=== PATIENT | female | born 1980 | race Caucasian/White ===

== ENCOUNTER 2019-04-24 17:20 | Emergency (ER) | payer BC, SELFPAY ==
--- NOTE | ~2019-04-24 | XR_ITS ---
EXAMINATION: XR wrist LT 2V DATE: 04/24/2019 18:38 INDICATION: Left wrist pain and bump over the pain at the radial side of the proximal wrist TECHNIQUE: Posteroanterior and lateral views of the left wrist were obtained. COMPARISON: none FINDINGS: Alignment is normal. No fracture. Joint spaces are normal. Approximately 3 mm diameter soft tissue de nsity projecting over the subcutaneous fat dorsal to the distal radial metadiaphysis which could repr esent a soft tissue nodule or subcutaneous vessel viewed en face. IMPRESSION: 1. Approximately 3 mm diameter soft tissue density projecting over the subcutaneous fat dorsal to the distal radial metadiaphysis which could represent a nonspecific soft tissue nodule or subcutaneous v essel viewed en face. Reviewed, dictated and finalized at location A. CH MANAGER IMPRESSION: 1. Approximately 3 mm diameter soft tissue density projecting over the subcutan eous fat dorsal to the distal radial metadiaphysis which could represent a nons pecific soft tissue nodule or subcutaneous vessel viewed en face.
[2019-04-24 18:18] VITALS: BP 123/88; PULSE 74; RESP 19; TEMP 37.3; O2SAT 99
[2019-04-24 20:27] VITALS: BP 124/100; PULSE 80; RESP 12; TEMP 36.7; O2SAT 95
--- NOTE | 2019-04-24 20:55 | ED.EXTPRO ---
HPI - Extremity Problem General Chief complaint: Extremity Problem,Nontraumatic Stated complaint: wrist injury Time Seen by Provider: 04/24/19 20:50 Source: patient and RN notes reviewed Mode of arrival: ambulatory Limitations: no limitations History of Present Illness HPI Narrative: Pt is a 38 y/o female who presents to the ED with c/o lt forearm pain starting this morning. She notes that she is currently 2 weeks , and states that she has received a multitude of IV's in her lt arm within the past several weeks. Pt notes that she woke up this morning with a throbbing pain in her lt forearm. She states that her pain seems to radiate along a superficial vein up her lt arm. Pt notes that she has since developed a bump on her lt forearm. She states that she hasn't taken any pain medications for her symptoms today. MD Complaint: extremity pain Onset (ago): hour(s) (several) Location: left and upper extremity Radiation: proximal Associated symptoms: other (bump on lt forearm) Context: recent surgery/procedure (recent vaginal delivery) Related Data Home Medications Medication Instructions Recorded Confirmed PNV cmb#95-ferrous fumarate-FA 1 tablet PO DAILY 03/16/19 04/08/19 [] Allergies Allergy/AdvReac Type Severity Reaction Status Date / Time No Known Allergies Allergy Verified 04/24/19 20:30 Review of Systems Review of Systems: All systems reviewed & are unremarkable except as noted in HPI and below Musculoskeletal: Musculoskeletal: Reports other (lt forearm pain radiating up lt arm) Integumentary/Breasts: Skin/Breast: Reports other (bump on lt forearm) PMFSH Past Medical History Medical History Gestational diabetes mellitus (GDM) depression Surgical History Surgical History Hx of breast augmentation Social History Social History Smoking status: Never smoker Substance use: never Gender identity (if verbalized by the patient): Female Spiritual care concerns: No Course Vital Signs Vital signs: Vital Signs Temperature 37.3 C 04/24/19 18:18 Pulse Rate 74 04/24/19 18:18 Respiratory Rate 19 04/24/19 18:18 Blood Pressure 123/88 04/24/19 18:18 Pulse Oximetry 99 04/24/19 18:18 Temperature 36.7 C 04/24/19 20:27 Pulse Rate 88 04/24/19 21:35 Respiratory Rate 19 04/24/19 21:35 Blood Pressure 121/82 04/24/19 21:35 Pulse Oximetry 97 04/24/19 21:35 Procedures Other Procedure Procedure 1: Other Procedure: Bedside ultrasound left upper extremity US show non-compressible superficial vein in left forearm. approximately 3 cm segment. Remainder of superficial and deep veins fully compressible. MDM - Extremity (Nontraumatic) MDM Narrative Medical decision making narrative: US shows thrombosed superficial vein. I will start her on a daily aspirin. Differential Diagnosis Differential diagnosis: Likely deep venous thrombosis of upper extremity and other (Superficial thrombosis) Discharge Plan Discharge Clinical Impression: Acute thrombosis of superficial veins of arm Patient Disposition: Home, Self-Care Condition: Stable Instructions: Antibiotic Form, Deep Vein Thrombosis Prevention (ED) Prescriptions: New aspirin [Enteric Coated Aspirin] 81 mg tablet,delayed release (DR/EC) 81 mg PO DAILY Qty: 30 RF: 0 No Action PNV cmb#95-ferrous fumarate-FA [] 28 mg iron- 800 mcg Tablet 1 tablet PO DAILY RF: 0 ibuprofen 600 mg Tablet 600 mg PO Q6H PRN (Reason: Cramping) Qty: 60 RF: 0 Follow-up/Referrals: UNKNOWN,DOCTOR [Primary Care Provider] - Discharge Date/Time: 04/24/19 21:35
[2019-04-24 21:35] VITALS: BP 121/82; PULSE 88; RESP 19; O2SAT 97
== END 2019-04-24 21:35 | disposition home or self-care (01) ==
PROVIDERS: Emergency Provider Emergency Medicine
DX: O99.43 Diseases of the circulatory system complicating the puerperium (principal); T80.1XXA Vascular complications following infusion, transfusion and therapeutic injection, initial encounter; I82.612 Acute embolism and thrombosis of superficial veins of left upper extremity
CPT/HCPCS: 73100; 99283

== ENCOUNTER 2020-03-12 12:46 | Observation (INO) | payer BC, SELFPAY ==
[2020-03-12 13:13] VITALS: BP 108/72; PULSE 73
[2020-03-12 13:15] VITALS: BP 107/69; PULSE 72
[2020-03-12 13:20] VITALS: BMI 24.5
[2020-03-12] MEDS: TERBUTALINE SULFATE 1 MG/ML VIAL 0.25 MG SUB-Q ×2 (13:49→14:25)
[2020-03-12 15:06] LABS: Basophils Percent Auto 0.6 % (0.2-1.2); Eosinophils Absolute Auto 0.1 K/mm3 (0-0.3); Eosinophils Percent Auto 0.8 % (0-4.4); Hematocrit 32.2 % (37.0-47.0); Hemoglobin 10.8 g/dL (12.0-15.0); Immature Granulocyte Absolute 0.06 K/mm3 (0.00-0.031); Lymphocytes Absolute Auto 1.79 K/mm3 (0.9-3.2); Lymphocytes Percent Auto 28.4 % (18.3-44.2); Mean Corpuscular HGB Conc 33.5 g/dl (32-36); Mean Corpuscular Hemoglobin 30.7 pg (26-34); Mean Corpuscular Volume 91.5 fl (80-100); Mean Platelet Volume 9.2 fl (7.4-10.4); Monocytes Absolute Auto 0.4 K/mm3 (0.1-0.6); Monocytes Percent Auto 6.8 % (2.6-8.5); Neutrophils Absolute Auto 3.9 K/mm3 (1.3-6.7); Neutrophils Percent Auto 62.4 % (45.5-73.1); Platelet Count Result 182 k/mm3 (150-375); Red Blood Count 3.52 M/mm3 (4.2-5.4); Red Cell Distribution Width 13.6 % (11.5-14.5); White Blood Count 6.3 K/mm3 (4.5-10.0)
[2020-03-12 15:11] LABS: Add Urine Microscopic? YES; Amorphous Sediment Urine Few; Appearance Urine Cloudy (Clear); Bacteria Urine Trace /hpf; Bilirubin Urine Negative (Negative); Blood Urine Negative (Negative); Color Urine Yellow (Yellow); Glucose Urine UA Negative (Negative); Ketones Urine Negative (Negative); Leukocyte Esterase Ur Negative LEU/UL (NEGATIVE); Nitrate Urine Negative (Negative); Protein Urine Negative (Negative); RBC Urine 0-2 /hpf (0-2); Specific Grav Ur 1.016 (1.001-1.035); Squamous Epithelial Cell Urine Rare /hpf (Few); Urobilinogen Urine Negative mg/dL (<2.0); WBC Urine 0-3 /hpf (0-3)
[2020-03-12] MEDS: BETAMETHASONE SOD PHOS/ACETATE 30 MG/5 ML VIAL 12 MG IM (15:51)
--- NOTE | 2020-03-16 08:34 | P.PNOB_ITS ---
OB - Triage/Final Diagnosis Visit Information Date of evaluation: 03/13/20 Reason for evaluation: threatened labor Evaluation Laboratory results: Laboratory Tests 03/12/20 03/12/20 13:57 13:58 WBC 6.3 RBC 3.52 L Hgb 10.8 L Hct 32.2 L MCV 91.5 MCH 30.7 MCHC 33.5 RDW 13.6 Plt Count 182 MPV 9.2 Immature Gran % (Auto) 1.0 H Neut % (Auto) 62.4 Lymph % (Auto) 28.4 Angelina % (Auto) 6.8 Eos % (Auto) 0.8 Baso % (Auto) 0.6 Lymph # (Auto) 1.79 Angelina # (Auto) 0.4 Eos # (Auto) 0.1 Baso # (Auto) 0.0 Abs Immat Gran (auto) 0.06 H Absolute Neuts (auto) 3.9 Absolute Nucleated RBC 0.0 Nucleated RBC % 0.0 Urine Color Yellow Urine Appearance Cloudy H Urine pH 7.0 Ur Specific [place] 1.016 Urine Protein Negative Urine Glucose (UA) Negative Urine Ketones Negative Ur Blood (Man) Negative Urine Nitrate Negative Urine Bilirubin Negative Urine Urobilinogen Negative Ur Leukocyte Esterase Negative Urine RBC 0-2 Urine WBC 0-3 Ur Squamous Epith Cells Rare Amorphous Sediment Few H Urine Bacteria Trace
== END 2020-03-12 16:35 | disposition home or self-care (01) ==
PROVIDERS: Advanced Practice Midwife; Admitting Provider Obstetrics & Gynecology; Visit Provider Obstetrics & Gynecology
DX: O47.03 False labor before 37 completed weeks of gestation, third trimester (principal); Z3A.29 29 weeks gestation of pregnancy
CPT/HCPCS: 36415; 81001; 85025; 87086; 96372; G0378; G0379; J0702; J3105

== ENCOUNTER 2020-03-13 10:40 | Inpatient (IN) | payer BC, SELFPAY ==
[2020-03-13] VITALS (70 sets, daily range): BP systolic 90–112; BP diastolic 59–77; PULSE 54–97; RESP 12–18; TEMP 36.2–37.3; O2SAT 97–100; BMI 24.7
--- NOTE | ~2020-03-13 | US_ITS ---
EXAMINATION: US OB limited DATE: 03/13/2020 12:06 INDICATION: Contractions. Vaginal bleeding. Estimated gestational age of 29 weeks and 5 days. TECHNIQUE: Real-time ultrasound of the pelvis was performed. COMPARISON: Ultrasound 04/03/2019 FINDINGS: There is a single fetus in breech presentation. The placenta is anterior. heart rate is 131 be ats per minute (bpm). The amniotic fluid index is 13.7 cm, which is normal. The cervix is short with funneling on transabdominal images. IMPRESSION: 1. Single living fetus in breech presentation. 2. Short cervix with funneling on transabdominal images. Reviewed, dictated and finalized at location A. DINATING PRODUCER
--- NOTE | 2020-03-13 10:57 | OBADM ---
This patient, Zayra Larson, admitted to the OB room 116 at 1040 for observation for vaginal bleeding and contractions. Patient/family oriented to hospital policies and general routines including ID bracelet, bed and alarms, visiting hours, pain management, procedures, bathroom and other care routines, personal items, smoking policy, room service/diet, and visiting hours. Patient/Family are encouraged to report perceived risks to care and to ask questions if they do not understand what they are told or what they should do.
[2020-03-13] MEDS: ACETAMINOPHEN 500 MG TABLET 1000 MG PO (11:46)
[2020-03-13] MEDS: LACTATED RINGERS 1,000 ML 75 ML IV CONT (12:32)
[2020-03-13] MEDS: MAGNESIUM SULF 4 GM/WATER100ML 4 GM/100 ML BAG IVPB (12:33)
--- NOTE | 2020-03-13 12:45 | LDADM ---
This patient, Zayra Larson, was admitted to OB ROom 116 on 03/13/20 at 12:37. Plans for section/ and pain management were discussed with patient. Patient/family oriented to hospital policies and general routines including ID bracelet, bed and alarms, visiting hours, pain management, procedures, bathroom and other care routines, personal items, smoking policy, room service/diet and guest tray routines, infant security routines, and visiting hours. Patient/Family are encouraged to report perceived risks to care and to ask questions if they do not understand what they are told or what they should do. See OBIX for further documentation.
[2020-03-13] MEDS: ceFAZolin 2 GM/D5W 50 ML 2 GM/50 ML BAG IVPB (12:48)
[2020-03-13 12:57] LABS: Basophils Absolute Auto 0.1 K/mm3 (0.0-0.1); Basophils Percent Auto 0.5 % (0.2-1.2); Hematocrit 36.2 % (37.0-47.0); Hemoglobin 12.1 g/dL (12.0-15.0); Immature Granulocyte Absolute 0.18 K/mm3 (0.00-0.031); Immature Granulocyte Percent A 1.7 % (0-0.5); Lymphocytes Absolute Auto 1.48 K/mm3 (0.9-3.2); Lymphocytes Percent Auto 14.1 % (18.3-44.2); Mean Corpuscular HGB Conc 33.4 g/dl (32-36); Mean Corpuscular Hemoglobin 30.6 pg (26-34); Mean Corpuscular Volume 91.6 fl (80-100); Mean Platelet Volume 9.1 fl (7.4-10.4); Monocytes Absolute Auto 0.7 K/mm3 (0.1-0.6); Monocytes Percent Auto 6.5 % (2.6-8.5); Neutrophils Absolute Auto 8.1 K/mm3 (1.3-6.7); Neutrophils Percent Auto 77.2 % (45.5-73.1); Platelet Count Result 210 k/mm3 (150-375); Red Blood Count 3.95 M/mm3 (4.2-5.4); Red Cell Distribution Width 13.6 % (11.5-14.5); White Blood Count 10.5 K/mm3 (4.5-10.0)
--- NOTE | 2020-03-13 13:16 | WPDANESEPPF ---
Anes - Initial Pre Proc Eval Procedure: Operation Date: 03/13/20 12:45 Proposed Procedures p Section - Titi Soria MD Date/Time: 03/13/20 13:16 Surgeon: Titi Soria MD Pre Op Diagnosis: Bleeding/Contractions Patient Data Age: 39 Gender: F Height: 1.57 m Weight: 61.5 kg Last Vital Signs Temp 37.3 C 03/13/20 11:28 Pulse 81 03/13/20 11:30 BP 107/68 03/13/20 11:30 Allergies Allergy/AdvReac Type Severity Reaction Status Date / Time No Known Allergies Allergy Verified 04/24/19 20:30 Home Medications Medication Instructions Recorded Confirmed Type PNV cmb#95-ferrous fumarate-FA 1 tablet PO DAILY 03/16/19 03/13/20 History [] nifedipine [Procardia] 10 mg PO Q4-6H PRN 03/12/20 03/13/20 History fluoxetine 40 mg PO DAILY 03/13/20 03/13/20 History trazodone 50 mg PO HS 03/13/20 03/13/20 History Laboratory Tests 03/13/20 03/13/20 12:40 12:40 WBC 10.5 K/mm3 H K/mm3 (4.5-10.0) RBC 3.95 M/mm3 L M/mm3 (4.2-5.4) Hgb 12.1 g/dL g/dL (12.0-15.0) Hct 36.2 % L % (37.0-47.0) MCV 91.6 fl fl (80-100) MCH 30.6 pg pg (26-34) MCHC 33.4 g/dl g/dl (32-36) RDW 13.6 % % (11.5-14.5) Plt Count 210 k/mm3 k/mm3 (150-375) MPV 9.1 fl fl (7.4-10.4) Immature Gran % (Auto) 1.7 % H % (0-0.5) Neut % (Auto) 77.2 % H % (45.5-73.1) Lymph % (Auto) 14.1 % L % (18.3-44.2) [place] % (Auto) 6.5 % % (2.6-8.5) Eos % (Auto) 0.0 % % (0-4.4) Baso % (Auto) 0.5 % % (0.2-1.2) Lymph # (Auto) 1.48 K/mm3 K/mm3 (0.9-3.2) [place] # (Auto) 0.7 K/mm3 H K/mm3 (0.1-0.6) Eos # (Auto) 0.0 K/mm3 K/mm3 (0-0.3) Baso # (Auto) 0.1 K/mm3 K/mm3 (0.0-0.1) Abs Immat Gran (auto) 0.18 K/mm3 H K/mm3 (0.00-0.031) Absolute Neuts (auto) 8.1 K/mm3 H K/mm3 (1.3-6.7) Absolute Nucleated RBC 0.0 K/mm3 K/mm3 (0.0-0.012) Nucleated RBC % 0.0 % % (0.0-0.2) RPR Pending Patient hx anesthesia problems: none Family hx anesthesia problems: none [facility] Past Medical History Medical History (Updated 04/25/19 @ 00:00 by Mary Anne Serna) Gestational diabetes mellitus (GDM) depression Surgical History Surgical History Hx of breast augmentation Social History Social History Smoking status: Never smoker Substance use: never Gender identity (if verbalized by the patient): Female Spiritual care concerns: No Anes - Eval Final PreProcedure Day of Procedure 03/13/20 13:16 Patient weight: normal Heart: regular rate and rhythm Lungs: clear to auscultation and normal air movement Airway: Mallampati scale class 1 Neurological: alert and oriented Last oral intake: >/= 8 hours ASA classification: II Emergent: yes Anesthetic plan: proceed Anesthesia type and monitoring: regional spinal and standard monitoring Informed Consent: The patient's anesthetic plan and its attendant risks and benefits were discussed with the patient/family/POA. Questions were solicited and answers provided to the satisfaction of the patient/family/POA.
[2020-03-13] MEDS: KETOROLAC 30 MG/ML VIAL (*BKC) 15 MG IV PUSH (13:24)
[2020-03-13] MEDS: TRANEXAMIC ACID 1,000 MG/10 ML AMPUL 1000 MG IV PUSH (13:57)
--- NOTE | 2020-03-13 14:36 | PM.IMHP ---
H&P: HPI History of Present Illness Date/Time: 03/13/20 14:36 Chief Complaint: Labor Narrative: Zayra Larson is a 39 year old female, multiparous, she is at 39 weeks gestation with a completely dilated cervix, bulging membranes, and debris be in the breech presentation. She denies any nausea, vomiting, fever, chills. She denies any chest pain or shortness of breath. She has had pelvic pressure but not many discrete contractions. She was given steroid dose yesterday after some contractions that were treated with nifedipine. She was 1 cm yesterday. Review of Systems Constitutional: Constitutional: Reports no additional constitutional complaints, Denies fatigue, Denies headache(s), Denies lethargy and Denies weakness Eyes: Eyes: Reports no additional eye complaints, Denies blurry vision and Denies photophobia ENT: Reports as per HPI, Denies headache(s) and Denies neck pain Cardiovascular: Cardiovascular: Denies chest pain, Denies diaphoresis, Denies leg edema, Denies palpitations and Denies dyspnea Respiratory: Respiratory: Denies hemoptysis, Denies dyspnea and Denies wheezing Gastrointestinal: Gastrointestinal: Denies abdominal pain, Denies melena, Denies bloating, Denies hematochezia, Denies nausea and Denies vomiting Genitourinary: Genitourinary: Reports no additional female genitourinary complaints Musculoskeletal: Musculoskeletal: Denies joint swelling, Denies neck pain, Denies numbness and Denies stiffness Neurologic: Denies Abnormal speech present, Denies confusion, Denies headache(s), Denies numbness and Denies weakness Psychiatric: Psychiatric: Denies anxiety, Denies confusion, Denies depression, Denies homicidal ideation and Denies suicidal ideation Endocrine: Endocrine: Denies fatigue and Denies palpitations Allergic/Immunologic: Allergic/Immunologic: Denies wheezing PMFSH Past Medical History Medical History (Updated 03/13/20 @ 14:39 by Titi Soria MD) Gestational diabetes mellitus (GDM) depression Surgical History Surgical History Hx of breast augmentation Social History Social History Smoking status: Never smoker Substance use: never Gender identity (if verbalized by the patient): Female Spiritual care concerns: No Meds Home Medications and Allergies Home Medications Medication Instructions Recorded Confirmed Type PNV cmb#95-ferrous fumarate-FA 1 tablet PO DAILY 03/16/19 03/13/20 History [] nifedipine [Procardia] 10 mg PO Q4-6H PRN 03/12/20 03/13/20 History fluoxetine 40 mg PO DAILY 03/13/20 03/13/20 History trazodone 50 mg PO HS 03/13/20 03/13/20 History Allergies Allergy/AdvReac Type Severity Reaction Status Date / Time No Known Allergies Allergy Verified 04/24/19 20:30 Vital Signs Vital Signs - 24 hr 03/13/20 10:55 03/13/20 11:00 03/13/20 11:28 Temperature 99.2 F Pulse Rate 97 92 Blood Pressure 112/77 111/72 Pulse Oximetry 03/13/20 11:30 03/13/20 14:28 03/13/20 14:29 Temperature Pulse Rate 81 63 Blood Pressure 107/68 92/60 L Pulse Oximetry 97 03/13/20 14:30 03/13/20 14:33 03/13/20 14:35 Temperature Pulse Rate 62 62 Blood Pressure 92/59 L 93/62 L Pulse Oximetry 99 Exam Const: General: healthy appearing, comfortable and no acute distress; No confusion Orientation/consciousness: No confusion Eyes: Direct Ophthalmoscopy: No photophobia Resp: Auscultation: clear to auscultation bilaterally, no rales, no rhonchi and no wheezes Cardio: Rate: regular rate Heart sounds: no click, no murmurs and no rubs GI: Inspection: non-distended GI Palp: No abdominal tenderness Auscultation: normal bowel sounds : Other: Cervical exam-complete, station unknown, bulging membranes Neuro: General: No confusion Speech: No Abnormal speech present Extrem: General: normal to inspection, no pedal edema and
--- NOTE | 2020-03-13 14:41 | PM.PROC ---
Procedure Note - Detailed Date of procedure: 03/13/20 Pre-op diagnosis: labor, breech presentation, 29 week gestat Post-op diagnosis: same Procedure performed: low-transverse delivery Description of procedure: The patient was taken the operating room. She was prepped and draped in the dorsal supine position with leftward tilt after induction of spinal anesthetic. When anesthesia was found to be adequate a low-transverse skin incision was made and carried down to the level the fascia with the knife. The fascial incision was made at the midline with a scalpel. The fascial incision was extended laterally with Rosa scissors. The fascia was tented upward superior and inferior with Char clamps. The rectus muscles were dissected off bluntly. The rectus muscles at the midline. The preperitoneal fat was dissected bluntly at the superior aspect of the separate the rectus muscles. The peritoneal cavity was entered bluntly in the same area. The peritoneal incision was extended superior and inferior with good visualization of bladder. Bladder blade was inserted. A low-transverse incision was made on the uterus with the scalpel. It was carried down the level of the amniotic cavity with a knife. The amniotic cavity bluntly. The uterine incision was made laterally with blunt traction. The uterine incision had to be extended vertically to deliver the infant. The infant was delivered. The cord was clamped and cut. The was handed off to waiting pediatric staff. Cord bloods were obtained. The placenta was removed manually. The uterus was exteriorized. Uterus cleared of all clots and debris. The endometrial and myometrial layer of the uterus was closed with an 0 Vicryl in a running fashion. An imbricating layer of 0 Vicryl was also placed on the to bolster the closure. The closure was done in a vertical fashion. Multiple [id number] sutures needed to be placed to make the uterus hemostatic. The sutures continue to ooze. The ovarian arteries on each side were ligated by making a window in the broad ligament and gently cinching down the suture around the ovarian artery. A window was created in the lower part of the broad ligament near the uterine arteries. Uterine arteries were then ligated using a 0 Vicryl that was placed through the cervix and around the arteries through the window created the broad ligament. This was gently cinched down. Premature was placed on the bleeding areas. Patient was given tranexamic acid. 1 g. IV. Large 1. Vicryl sutures were placed in a horizontal fashion. These were imbricating sutures/mattress style sutures. The uterus was replaced back in the. More hematoma was placed on the bleeding sites. The uterus was eventually hemostatic. The gutters were cleared of all clots and debris. The fascia was closed 0 Vicryl in a running fashion. Subcutaneous tissue was irrigated and bleeding areas were cauterized. The skin was closed with subcuticular absorbable piter. The incision was covered with derma brown. The patient tolerated the procedure well. She was taken recovery room stable condition. Sponge, lap, needle counts were correct x2. Anesthesia: spinal Surgeon: Titi Soria MD Drains: No Packing: No Pathology: none sent Complications: No immediate complications Condition: stable Disposition: floor Findings: Normal maternal anatomy, 29 week gestation with typical behavior for .
[2020-03-13] MEDS: OXYTOCIN 30 UNITS/NS 500 ML 30 UNITS/500 ML BAG 125 UNITS IV CONT (16:00)
--- NOTE | 2020-03-13 16:14 | PM.OBTRLD ---
OB - Triage/Final Diagnosis Visit Information Date of evaluation: 03/13/20 Reason for evaluation: threatened labor Evaluation Laboratory results: Laboratory Tests 03/13/20 03/13/20 12:40 12:40 WBC 10.5 H RBC 3.95 L Hgb 12.1 Hct 36.2 L MCV 91.6 MCH 30.6 MCHC 33.4 RDW 13.6 Plt Count 210 MPV 9.1 Immature Gran % (Auto) 1.7 H Neut % (Auto) 77.2 H Lymph % (Auto) 14.1 L [place] % (Auto) 6.5 Eos % (Auto) 0.0 Baso % (Auto) 0.5 Lymph # (Auto) 1.48 [place] # (Auto) 0.7 H Eos # (Auto) 0.0 Baso # (Auto) 0.1 Abs Immat Gran (auto) 0.18 H Absolute Neuts (auto) 8.1 H Absolute Nucleated RBC 0.0 Nucleated RBC % 0.0 Blood Type O Positive Antibody Screen Negative Vital signs: Vital Signs - 24 hr 03/13/20 10:55 03/13/20 11:00 03/13/20 11:28 Temperature 37.3 C Pulse Rate 97 92 Respiratory Rate Blood Pressure 112/77 111/72 Pulse Oximetry 03/13/20 11:30 03/13/20 14:27 03/13/20 14:28 Temperature 36.2 C L Pulse Rate 81 63 Respiratory Rate 12 Blood Pressure 107/68 92/60 L Pulse Oximetry 97 97 03/13/20 14:29 03/13/20 14:30 03/13/20 14:33 Temperature Pulse Rate 63 62 Respiratory Rate Blood Pressure 92/60 L 92/59 L Pulse Oximetry 99 03/13/20 14:35 03/13/20 14:38 03/13/20 14:40 Temperature Pulse Rate 62 64 Respiratory Rate 12 Blood Pressure 93/62 L 96/64 L Pulse Oximetry 98 03/13/20 14:43 03/13/20 14:45 03/13/20 14:48 Temperature Pulse Rate 60 Respiratory Rate Blood Pressure 100/64 Pulse Oximetry 99 99 03/13/20 14:50 03/13/20 14:53 03/13/20 14:55 Temperature Pulse Rate 58 L 60 Respiratory Rate 12 Blood Pressure 97/62 L 97/67 L Pulse Oximetry 99 03/13/20 14:58 03/13/20 15:00 03/13/20 15:03 Temperature Pulse Rate 58 L Respiratory Rate 12 Blood Pressure 98/66 L Pulse Oximetry 99 99 03/13/20 15:05 03/13/20 15:08 03/13/20 15:10 Temperature Pulse Rate 58 L 66 Respiratory Rate Blood Pressure 94/66 L 97/63 L Pulse Oximetry 98 03/13/20 15:13 03/13/20 15:15 03/13/20 15:18 Temperature Pulse Rate 55 L Respiratory Rate 14 Blood Pressure 98/66 L Pulse Oximetry 99 98 03/13/20 15:20 03/13/20 15:23 03/13/20 15:25 Temperature Pulse Rate 60 57 L Respiratory Rate Blood Pressure 95/66 L 98/67 L Pulse Oximetry 100 03/13/20 15:27 03/13/20 15:30 03/13/20 15:32 Temperature Pulse Rate 67 Respiratory Rate 12 Blood Pressure 91/68 L Pulse Oximetry 97 99 03/13/20 15:35 03/13/20 15:37 03/13/20 15:39 Temperature Pulse Rate 65 Respiratory Rate Blood Pressure 90/72 L Pulse Oximetry 100 100 03/13/20 15:40 03/13/20 15:44 03/13/20 15:45 Temperature Pulse Rate 55 L 54 L Respiratory Rate 12 Blood Pressure 102/67 98/71 L Pulse Oximetry 100 03/13/20 15:49 03/13/20 15:50 03/13/20 15:54 Temperature Pulse Rate 56 L Respiratory Rate Blood Pressure 98/68 L Pulse Oximetry 99 100 03/13/20 15:55 03/13/20 15:59 03/13/20 16:00 Temperature Pulse Rate 55 L 60 Respiratory Rate 16 Blood Pressure 96/68 L 102/67 Pulse Oximetry 99 03/13/20 16:04 03/13/20 16:05 03/13/20 16:09 Temperature Pulse Rate 56 L Respiratory Rate Blood Pressure 101/69 Pulse Oximetry 99 99 03/13/20 16:10 Temperature Pulse Rate 57 L Respiratory Rate Blood Pressure 97/67 L Pulse Oximetry
--- NOTE | 2020-03-13 18:57 | PC.NURSE ---
1702-Patient transferred to post room #281 via stretcher. Oriented to unit, room, information board, rooming in, admission packet and security measures. Patient verbalizes understanding.
[2020-03-13] MEDS: KETOROLAC 30 MG/ML VIAL (*BKC) IV PUSH (19:57)
[2020-03-14] VITALS (13 sets, daily range): BP systolic 89–99; BP diastolic 50–71; PULSE 57–70; RESP 12–20; TEMP 36.3–36.8; O2SAT 95–100
[2020-03-14] MEDS: KETOROLAC 30 MG/ML VIAL (*BKC) IV PUSH ×3 (01:39→18:52)
[2020-03-14] MEDS: HYDROcodone/acetaminophen (*CRX) 5-325 MG TABLET 1 TAB PO ×2 (04:46→16:15)
[2020-03-14 05:06] LABS: Basophils Percent Auto 0.3 % (0.2-1.2); Eosinophils Absolute Auto 0.1 K/mm3 (0-0.3); Eosinophils Percent Auto 1.3 % (0-4.4); Hematocrit 22.3 % (37.0-47.0); Hemoglobin 7.3 g/dL (12.0-15.0); Immature Granulocyte Absolute 0.05 K/mm3 (0.00-0.031); Immature Granulocyte Percent A 0.8 % (0-0.5); Lymphocytes Absolute Auto 1.47 K/mm3 (0.9-3.2); Lymphocytes Percent Auto 24.4 % (18.3-44.2); Mean Corpuscular HGB Conc 32.7 g/dl (32-36); Mean Corpuscular Hemoglobin 30.2 pg (26-34); Mean Corpuscular Volume 92.1 fl (80-100); Mean Platelet Volume 9.4 fl (7.4-10.4); Monocytes Absolute Auto 0.3 K/mm3 (0.1-0.6); Monocytes Percent Auto 5.6 % (2.6-8.5); Neutrophils Absolute Auto 4.1 K/mm3 (1.3-6.7); Neutrophils Percent Auto 67.6 % (45.5-73.1); Platelet Count Result 124 k/mm3 (150-375); Red Blood Count 2.42 M/mm3 (4.2-5.4); Red Cell Distribution Width 13.7 % (11.5-14.5)
[2020-03-14] MEDS: SIMETHICONE 80 MG TAB.CHEW PO ×2 (08:36→16:15)
[2020-03-14] MEDS: DOCUSATE SODIUM 100 MG CAPSULE PO ×2 (08:36→16:15)
[2020-03-14] MEDS: HYDROcodone/acetaminophen (*CRX) 10-325 MG TABLET 1 TAB PO ×2 (08:37→18:51)
[2020-03-14] MEDS: POLYSACCHARIDE IRON COMPLEX 150 MG CAPSULE PO ×2 (08:41→16:15)
[2020-03-14] MEDS: FLUoxetine HCL 20 MG CAPSULE 40 MG PO (08:42)
--- NOTE | 2020-03-14 10:20 | WPDANLDPN2 ---
Anes-Prog Note L&D Date/Time: 03/14/20 10:20 Comfortable throughout: section Neuraxial method: spinal Epidural/Spinal procedure site: clean & non-tender Neuro status: Neuro function grossly intact. Cardiovascular status: normal Respiratory status: normal Airway patency: baseline Mental status: baseline Post-Op hydration status: normal Vital Signs: Last Vital Signs Temp 36.8 C 03/14/20 04:30 Pulse 57 L 03/14/20 04:30 Resp 16 03/14/20 04:30 BP 89/59 L 03/14/20 04:30 Pulse Ox 95 03/14/20 04:30 Pain score (VAS): 3/10 I/O: Intake & Output 03/13/20 03/14/20 03/14/20 23:59 07:59 15:59 Intake Total 1400 Output Total 73 1600 Balance -73 -200 Post-procedural complaints: pruritis moderate, treatment effective Patient feedback: Patient satisfied with anesthetic care.
--- NOTE | 2020-03-14 10:20 | WPDANLDNPN2 ---
Anes-Prog Note L&D-Neuraxial Date/Time: 03/14/20 10:20 Neuraxial medications: intrathecal PF morphine Opiod-related complaints: none Patient feedback: Patient satisfied with post-operative pain management.
--- NOTE | 2020-03-14 11:42 | P.PNOB_ITS ---
OB - PN: Subj Subjective Date/time seen: 03/14/20 11:42 OB - PN: Obj Data Labs CBC & Chem 7: 03/14/20 04:28 Labs: Laboratory Results - last 24 hr 03/13/20 03/13/20 03/14/20 12:40 12:40 04:28 WBC 10.5 H 6.0 RBC 3.95 L 2.42 L Hgb 12.1 7.3 L D Hct 36.2 L 22.3 L MCV 91.6 92.1 MCH 30.6 30.2 MCHC 33.4 32.7 RDW 13.6 13.7 Plt Count 210 124 L MPV 9.1 9.4 Immature Gran % (Auto) 1.7 H 0.8 H Neut % (Auto) 77.2 H 67.6 Lymph % (Auto) 14.1 L 24.4 [place] % (Auto) 6.5 5.6 Eos % (Auto) 0.0 1.3 Baso % (Auto) 0.5 0.3 Lymph # (Auto) 1.48 1.47 [place] # (Auto) 0.7 H 0.3 Eos # (Auto) 0.0 0.1 Baso # (Auto) 0.1 0.0 Abs Immat Gran (auto) 0.18 H 0.05 H Absolute Neuts (auto) 8.1 H 4.1 Absolute Nucleated RBC 0.0 0.0 Nucleated RBC % 0.0 0.0 Blood Type O Positive Antibody Screen Negative Imaging Radiologist's impression: Impressions Obstetrics Ultrasound 03/13/20 12:15 IMPRESSION: 1. Single living fetus in breech presentation. 2. Short cervix with funneling on transabdominal images. OB - PN A/P Assessment and Plan (1) Hematoma of surgical wound following section: Code(s): O90.2 - Hematoma of obstetric wound Status: Acute Assessment and Plan: Skin is due to the hematoma, the skin is under some tension from the abdominal plasty. We will need to reoperate on the patient to irrigate the subcutaneous tissue properly, remove the clot, and reapproximate the scan. The patient understands. She understands the risks, benefits, and alternatives. Bethany morrison completed the informed consent process and is ready to proceed. Time Spent With Patient Time: Total time spent is greater than 50% in coordination of care (as documented) at patient's floor/unit and/or counseling patient: Exam Const: General: comfortable, no acute distress and alert Resp: Effort & Inspection: normal respiratory effort Auscultation: no crackles, no rales and no rhonchi Cardio: Rate: regular rate Heart sounds: no click, no murmurs and no rubs GI: Inspection: non-distended GI Palp: No Tenderness to palpation present (GI) Auscultation: normal bowel sounds Other: Incision -incisions under significant tension. Under the fluid there appeared to be blood. The balloon was removed. There was a large hematoma underneath the skin. Most of the scan was no longer approximated but was held in place with the glue. The central 2/3 of the incision were with blood cot underneath.. Extrem: General: normal to inspection, no pedal edema and no calf tenderness
--- NOTE | 2020-03-14 12:16 | WPDHPUPDATE1 ---
History and Physical Update Update Date/Time: 03/14/20 12:16 To perform closure of surgical incision. History and Physical has been reviewed, including an updated exam of the patient. There are NO changes in the patient's condition. Risks, benefits, and alternatives have been discussed and questions answered. Patient agrees to proceed with procedure.
--- NOTE | 2020-03-14 12:20 | WPDANESEPP ---
Anes - Eval Pre Procedure Procedure: c section incision revision vs I&D Operation Date: 03/13/20 12:45 Proposed Procedures p Section - Titi Soria MD Operation Date: 03/14/20 13:00 Proposed Procedures p Abdominal Hysterectomy BSO Exp Lap Crap Game Box Person Exploratory Laparotomy DATA ARCHITECT - Titi Soria MD Date/Time: 03/14/20 12:20 Surgeon: Yang Preop Diagnosis: hematoma incision s/p c section Pre Op Diagnosis: labor, breech presentation, 29 week gestat Patient Data Age: 39 Gender: F Height: 5 ft 2 in Weight: 61.5 kg Last Vital Signs Temp 36.7 C 03/14/20 11:32 Pulse 61 03/14/20 11:32 Resp 16 03/14/20 11:32 BP 98/64 L 03/14/20 11:32 Pulse Ox 100 03/14/20 11:32 Allergies Allergy/AdvReac Type Severity Reaction Status Date / Time No Known Allergies Allergy Verified 04/24/19 20:30 Home Medications Medication Instructions Recorded Confirmed Type PNV cmb#95-ferrous fumarate-FA 1 tablet PO DAILY 03/16/19 03/13/20 History [] nifedipine [Procardia] 10 mg PO Q4-6H PRN 03/12/20 03/13/20 History fluoxetine 40 mg PO DAILY 03/13/20 03/13/20 History trazodone 50 mg PO HS 03/13/20 03/13/20 History Laboratory Tests 03/13/20 03/13/20 03/13/20 12:40 12:40 12:40 WBC 10.5 K/mm3 H K/mm3 (4.5-10.0) RBC 3.95 M/mm3 L M/mm3 (4.2-5.4) Hgb 12.1 g/dL g/dL (12.0-15.0) Hct 36.2 % L % (37.0-47.0) MCV 91.6 fl fl (80-100) MCH 30.6 pg pg (26-34) MCHC 33.4 g/dl g/dl (32-36) RDW 13.6 % % (11.5-14.5) Plt Count 210 k/mm3 k/mm3 (150-375) MPV 9.1 fl fl (7.4-10.4) Immature Gran % (Auto) 1.7 % H % (0-0.5) Neut % (Auto) 77.2 % H % (45.5-73.1) Lymph % (Auto) 14.1 % L % (18.3-44.2) [place] % (Auto) 6.5 % % (2.6-8.5) Eos % (Auto) 0.0 % % (0-4.4) Baso % (Auto) 0.5 % % (0.2-1.2) Lymph # (Auto) 1.48 K/mm3 K/mm3 (0.9-3.2) [place] # (Auto) 0.7 K/mm3 H K/mm3 (0.1-0.6) Eos # (Auto) 0.0 K/mm3 K/mm3 (0-0.3) Baso # (Auto) 0.1 K/mm3 K/mm3 (0.0-0.1) Abs Immat Gran (auto) 0.18 K/mm3 H K/mm3 (0.00-0.031) Absolute Neuts (auto) 8.1 K/mm3 H K/mm3 (1.3-6.7) Absolute Nucleated RBC 0.0 K/mm3 K/mm3 (0.0-0.012) Nucleated RBC % 0.0 % % (0.0-0.2) RPR Pending Blood Type O Positive Antibody Screen Negative 03/14/20 04:28 WBC 6.0 K/mm3 K/mm3 (4.5-10.0) RBC 2.42 M/mm3 L M/mm3 (4.2-5.4) Hgb 7.3 g/dL L D g/dL (12.0-15.0) Hct 22.3 % L % (37.0-47.0) MCV 92.1 fl fl (80-100) MCH 30.2 pg pg (26-34) MCHC 32.7 g/dl g/dl (32-36) RDW 13.7 % % (11.5-14.5) Plt Count 124 k/mm3 L k/mm3 (150-375) MPV 9.4 fl fl (7.4-10.4) Immature Gran % (Auto) 0.8 % H % (0-0.5) Neut % (Auto) 67.6 % % (45.5-73.1) Lymph % (Auto) 24.4 % % (18.3-44.2) [place] % (Auto) 5.6 % % (2.6-8.5) Eos % (Auto) 1.3 % % (0-4.4) Baso % (Auto) 0.3 % % (0.2-1.2) Lymph # (Auto) 1.47 K/mm3 K/mm3 (0.9-3.2) [place] # (Auto) 0.3 K/mm3 K/mm3 (0.1-0.6) Eos # (Auto) 0.1 K/mm3 K/mm3 (0-0.3) Baso # (Auto) 0.0 K/mm3 K/mm3 (0.0-0.1) Abs Immat Gran (auto) 0.05 K/mm3 H K/mm3 (0.00-0.031) Absolute Neuts (auto) 4.1 K/mm3 K/mm3 (1.3-6.7) Absolute Nucleated RBC 0.0 K/mm3 K/mm3 (0.0-0.012) Nucleated RBC % 0.0 % % (0.0-0.2) RPR Blood Type Antibody Screen Patient hx anesthesia problems: none Family hx anesthesia problems: none [facility] Past Medical History Medical History Gestational diabetes mellitus (GDM) depression Surgical History Surgical History Hx of breast augmentation Family History Family H
[2020-03-14] MEDS: ceFAZolin 2 GM/D5W 50 ML 2 GM/50 ML BAG IVPB (12:45)
[2020-03-14 12:54] LABS: Rapid Plasma Reagin Non-Reactive (NonReactive)
--- NOTE | 2020-03-14 13:37 | SUR.OPER ---
EARING LEFT EAR SMALL MRAIELOS REMAINS INTACT. PATIENT DENIED ANY METAL PRE OP.
[2020-03-14] MEDS: LACTATED RINGERS 1,000 ML 30 ML IV CONT (13:43)
--- NOTE | 2020-03-14 13:47 | PC.NURSE ---
11:25- Dr. Soria on floor to round on pt.'s. Status report given including pt. having bloody drainage from abdominal incision. Dr. Soria observed incision. See MD. notes. Order received to have pt. sign consent for Surgical Closure of Abdominal Wound. Pt. comfortable at this time. Very pleasant and cooperative. at side. 12:30- Pt. to O.R. per clark.
--- NOTE | 2020-03-14 14:07 | P.OP_ITS ---
Procedure Note - Detailed Date of procedure: 03/14/20 Pre-op diagnosis: labor, breech presentation, 29 week gestat Procedure performed: Exploratory laparotomy Description of procedure: The patient states the operating room. She was prepped and draped in the dorsal spine position after spinal anesthetic. The open incision was cleaned with Betadine. Justino that were visualized were removed. The fascial stitch was transected. The fascia was opened. The uterus was examined. There were some small areas oozing blood. These areas were cauterized. They were along the anterior surface of the uterus. There were 3. Hematoma was placed over the uterine surface that had previously been operated on. Multiple sutures to still be visualized. There was no marked hemorrhage or reggie bleeding. Any free clot or liquid blood in the pelvis was removed. There was a small amount. The fascia was closed with an 0 Vicryl running fashion. There was subcutaneous interrupted sutures of 3 0 PDS were used to augment the closure. A 2O strata fix was used to close the skin. Prior to closure the skin and subcutaneous fat was irrigated. Pinpoint bleeders were cauterized. The closed skin was covered with glue. A Mepilex dressing and pressure dressing we re applied. Anesthesia: spinal Surgeon: Titi Soria MD Estimated blood loss (mL): 30 Drains: No Packing: No Complications: No immediate complications Condition: stable Disposition: floor Findings: Small amount of blood and clot within the pelvis/abdominal cavity. Moderate-sized clot in the subcutaneous fat. There were areas of oozing in the subcutaneous fat. There was a couple of areas of oozing on the anterior uterine surface inside the abdominal cavity.
--- NOTE | 2020-03-14 14:24 | SUR.PHASEI ---
PT AWAKE AND RESTING QUIETLY. HAS SENSATION DOWN TO BILAT KNEES NOW. NO MOVEMENT YET. PT DENIES PAIN OR NAUSEA. RESP EVEN UNLABORED. P,W,D. HOB AT 15 DEGREES.
--- NOTE | 2020-03-14 14:34 | SUR.PHASEI ---
PT AWAKE AND ALERT. DENIES PAIN OR NAUSEA. STATES SHE IS READY TO GO HOME AND SMILED. REPORT GIVEN TO FLOOR RN. PT MEETS DISCHARGE CRITERIA FOR PACU.
--- NOTE | 2020-03-14 14:48 | PC.NURSE ---
This patient, Zayra Larson, was received from PACU on 03/14/20 at 1448. Patient alert and oriented. Call light in reach. at side.
[2020-03-14 19:00] LABS: Hematocrit 21.7 % (37.0-47.0)
[2020-03-14 19:10] LABS: INR 1.1; Prothrombin Time 14.7 Seconds (11.1-14.7)
[2020-03-14 19:11] LABS: Partial Thromboplastin Time 30.7 SECONDS (22.3-36.8)
[2020-03-16 08:03] VITALS: BP 123/81; PULSE 58; RESP 20; TEMP 37.1; O2SAT 100
[2020-03-17 14:23] LABS: von Willebrand Factor Ag 104 % (50-217)
--- NOTE | 2020-04-09 20:42 | PM.OBDSVD ---
DS: Admitting Diagnosis Admitting Diagnosis Admitting Diagnosis: labor, breech OB - DS: Summary OB Procedures : PTL Mgmt OB Procedures Intrapartum: OB Procedures: : None Peripartum Data Delivery Method: Section Procedures: Procedures Operation Date: 03/13/20 12:45 Actual Procedures Side Surgeon p Section and Bilateral Tubal Ligation Bilateral Titi Soria MD Operation Date: 03/14/20 13:00 Actual Procedures Side Surgeon p Closure of Abdominal Surgical Wound Titi Soria MD complications: none Time Spent with Patient Time attestation: Total time spent providing and/or coordinating discharge services: DS: Data Data Completed and Pending Completed studies during hospitalization: Pending at discharge 03/13/20 13:42 Surgical [PTH] Routine Discharge Plan Discharge Attending physician on discharge: Titi Soria Consulting providers: Kenia Hill ; Beka Gregory ; Issa Richter V. Discharging Clinician: Titi Soria Patient Disposition: Home, Self-Care Activity: may shower, no straining, no driving, as tolerated and pelvic rest Diet: regular Discharge Instructions: Education: Mom and Baby Guide Given to: Mother Follow-Up: Call your delivering provider's office for an appointment to be seen in: 1 Week Mom and baby should come to the [facility] for the follow-up appointment. Appointment Date/Time: March 16, 2020 at 8:00 am What to expect at your follow-up visit: Blood Pressure Check Physical Assessment Call [phone] if you are unable to keep your appointment time. BREAST CARE: * Wear a snug supportive bra. * For engorgement discomfort: Breast Feeding: * Apply warm moist washcloths * Express milk as needed to relieve engorgement * Wear loose clothing Bottle Feeding: * May apply ice packs * For sore nipples: * Identify correct latch-on * Apply warm moist washcloths before and after nursing * Air dry nipples after nursing * May apply Lansinoh cream to nipples ABDOMINAL INCISION: (if applicable) * Allow incision to air dry * Do NOT use lotions for powders on your incision * When showering, allow soap and water to run over the incision, but do not wash incision EPISIOTOMY/PERINEAL CARE: * Until bleeding stops, use your diego bottle after urinating * Change your pad frequently throughout the day * You may take sitz baths several times a day (fill your bathtub with warm water and soak for 20 minutes.) Do NOT bathe in the water * No tub baths until seen by your physician - You may shower ACTIVITY: * Rest as much as possible. * Do not exercise or lift anything heavier than your baby (such as laundry or other children.) * Avoid stairs or driving as much as possible. * Do not put anything into the vagina. No douching, tampons, or sexual activity until seen by physician. NOTIFY PHYSICIAN IF YOU HAVE ANY QUESTIONS OR IF ANY OF THE FOLLOWING SYMPTOMS OCCUR: * If your episiotomy or incision becomes red, swollen, or more painful than what you have experienced in the hospital. * If your vaginal bleeding becomes foul smelling. * If your vaginal bleeding becomes more heavy than a period or if your bleeding changes from pink to bright red. However, you may pass an occasional walnut-sized clot once or twice for the first week . * If you experience a sharp, shooting pain in you calves. * If you discover a hard, reddened area on your breast or if you experience flu-like symptoms. DIET: * Eat regular, well-balanced meals. * Drink plenty of fluids daily. If , drink to thirst. Patient Instructions: Antibiotic Form Stand Alone Forms: General Discharge Information Follow-up/Referrals: Titi Soria MD [Physician] - Discharge Medications: New ac
== END 2020-03-14 20:05 | disposition home or self-care (01) | DRG 787 ==
LOC: ANHOBPP 12:37 → ANHLDR 12:38 → ANHOB2 17:09
PROVIDERS: Admitting Provider Obstetrics & Gynecology; Visit Provider Obstetrics & Gynecology
PROC: 10D00Z1 Extraction of Products of Conception, Low, Open Approach (ICD-10-PCS; CPT 59514; principal; 2020-03-13 12:45)
PROC: 0UT94ZZ Resection of Uterus, Percutaneous Endoscopic Approach (ICD-10-PCS; principal; 2020-03-14 13:00)
DX: O60.14X0 Preterm labor third trimester with preterm delivery third trimester, not applicable or unspecified (principal); O72.1 Other immediate postpartum hemorrhage; O32.1XX0 Maternal care for breech presentation, not applicable or unspecified; O90.2 Hematoma of obstetric wound; Z3A.29 29 weeks gestation of pregnancy; Z37.0 Single live birth; O99.72 Diseases of the skin and subcutaneous tissue complicating childbirth; L29.9 Pruritus, unspecified
CPT/HCPCS: 36415; 76815; 83520; 85014; 85018; 85025; 85246; 85610; 85730; 86592; 86850; 86900; 86901; 88302; 88307; A9270; G0378; J0131; J0290; J0690; J1885; J2250; J2274; J2405; J2590; J2704; J3010; J3475; J7120

== ENCOUNTER 2020-08-26 12:17 | Outpatient (CLI) | payer BC, SELFPAY ==
--- NOTE | ~2020-08-26 | MM_ITS ---
EXAMINATION: MM scrn rosanna implant BI w rose HISTORY: Screening mammogram TECHNIQUE: Craniocaudal and mediolateral oblique 3-D tomosynthesis images with implant displacement a nd synthetic 2-D images were generated. Craniocaudal and mediolateral oblique views of the breasts wi thout implant displacement were obtained using full field digital mammography. CAD analysis was submi tted and interpreted. COMPARISON: No prior mammogram is available for comparison at this institution. BREAST PARENCHYMAL COMPOSITION: The breasts are heterogeneously dense, which may obscure small masses . FINDINGS: Status post bilateral augmentation mammoplasty. There is no evidence of suspicious mass, ca lcification, or architectural distortion to suggest malignancy in either breast. IMPRESSION: 1. No mammographic evidence of malignancy. 2. Recommend routine screening mammography in one year. BI-RADS Category 1: Negative Reviewed, dictated and finalized at location A.
== END 2020-08-26 12:18 | disposition home or self-care (01) ==
PROVIDERS: Visit Provider Surgery Plastic and Reconstructive Surgery
DX: Z12.31 Encounter for screening mammogram for malignant neoplasm of breast (principal)
CPT/HCPCS: 77063; 77067

== ENCOUNTER → 2020-10-28 03:34 | Outpatient (CLI) | payer OTHER, SELFPAY ==
[2020-10-28 17:32] LABS: SARS-CoV-2 RNA PCR Negative
== END ==
PROVIDERS: Visit Provider Surgery Plastic and Reconstructive Surgery
DX: Z01.812 Encounter for preprocedural laboratory examination (principal); Z20.822 Contact with and (suspected) exposure to COVID-19
CPT/HCPCS: C9803; U0003; U0005

== ENCOUNTER 2020-10-31 01:16 | Day surgery (SDC) | payer OTHER, SELFPAY ==
[2020-10-28 13:26] VITALS: BMI 22.1
[2020-10-31] VITALS (9 sets, daily range): BP systolic 101–135; BP diastolic 65–88; PULSE 62–100; RESP 10–16; TEMP 36.3–36.9; O2SAT 92–100; BMI 22.1
[2020-10-31] MEDS: LACTATED RINGERS 1,000 ML 30 ML IV CONT (06:53)
--- NOTE | 2020-10-31 06:53 | SUR.PREOP ---
500CC IVF BOLUS INFUSING, PER ORDER
--- NOTE | 2020-10-31 06:55 | WPDHPUPDATE1 ---
History and Physical Update Update Date/Time: 10/31/20 06:55 History and Physical has been reviewed, including an updated exam of the patient. There are NO changes in the patient's condition. Risks, benefits, and alternatives have been discussed and questions answered. Patient agrees to proceed with procedure.
--- NOTE | 2020-10-31 06:55 | WPDANESEPPF ---
Anes - Initial Pre Proc Eval Procedure: Operation Date: 10/31/20 07:30 Proposed Procedures p Removal Bilateral Breast Implants, - Sea Orozco MD s Bilateral Breast Mastopexy - Sea Orozco MD Date/Time: 10/31/20 06:55 Surgeon: Sea Orozco MD Pre Op Diagnosis: breast ptosis, unacceptable cosmetic appearance Patient Data Age: 39 Gender: F Height: 1.57 m Weight: 55 kg Allergies Allergy/AdvReac Type Severity Reaction Status Date / Time No Known Allergies Allergy Verified 10/31/20 06:17 Home Medications Medication Instructions Recorded Confirmed Type fluoxetine 40 mg PO DAILY 03/13/20 10/31/20 History trazodone 50 mg PO HS 03/13/20 10/31/20 History docusate sodium 100 mg capsule 100 mg PO DAILY #14 cap 10/16/20 Rx hydrocodone 5 mg-acetaminophen 325 1 tablet PO Q6H PRN #15 tablet 10/16/20 10/16/20 Rx mg tablet ondansetron HCl 4 mg tablet 4 mg PO Q8H #21 tablet 10/16/20 Rx Laboratory Tests 10/31/20 06:39 Cotinine Pending Patient hx anesthesia problems: none Family hx anesthesia problems: none PMFSH Past Medical History Medical History Gestational diabetes mellitus (GDM) depression Surgical History Surgical History History of Hx of breast augmentation Family History Family History Other No pertinent family history Social History Social History Smoking status: Never smoker Second hand tobacco smoke exposure: No Alcohol intake: current Drinks per week: 2 Substance use: never Living arrangements: with family Gender identity (if verbalized by the patient): Female Spiritual care concerns: No Anes - Eval Final PreProcedure Day of Procedure 10/31/20 06:55 Patient weight: normal Heart: regular rate and rhythm Lungs: clear to auscultation Airway: Mallampati scale class II Neurological: alert and oriented Last oral intake: >/= 8 hours ASA classification: II Emergent: no Anesthetic plan: proceed Anesthesia type and monitoring: general LMA and standard monitoring Other findings: TIVA Informed Consent: The patient's anesthetic plan and its attendant risks and benefits were discussed with the patient/family/POA. Questions were solicited and answers provided to the satisfaction of the patient/family/POA.
[2020-10-31 07:00] LABS: Urine Cotinine NEGATIVE
--- NOTE | 2020-10-31 07:09 | SUR.PREOP ---
0700; RN IN ROOM WHILE DR LOREDO MARKED PT. SPOUSE AT BEDSIDE.
--- NOTE | 2020-10-31 07:11 | P.OP_ITS ---
Procedure Note - Detailed Date of Procedure 10/31/20 Pre-op Diagnosis breast ptosis, unacceptable cosmetic appearance, history breast augmentation Post-op Diagnosis same Procedure Performed Bilateral breast in removal with mastopexy Surgeon Sea Orozco MD Anesthesia general Findings Inverted T superior pedicle Old implants 375cc, smooth, intact. Description of Procedure Risks, benefits alternatives were discussed her in the preoperative holding area. She understands she has a previous diego areolar mastopexy which increases the risk of all complications including but not limtied to nipple areola loss (nipple areola ). All questions were answered to their satisfaction. They voiced understanding. Consent obtained. She was marked in a standing position. Taken to the operating room placed supine on the operating room table. Anesthesia was provided by anesthesiology and prepped and draped in a standard sterile fashion. Surgical time-out was taken. 1% lidocaine and 0.25% Marcaine with epinephrine was used anesthetize as a field block. I incised vertically and continued down to the implant was identified. This was removed. Breast was tailor tacked in position. She was placed in a sitting position. I verified my nipple-areolar markings which were based on preoperative measurements, observations as well as intraoperative evaluation which was in full agreement. I marked out the nipple-areolar complex at 38 mm. She was placed supine. Bilateral 15 Bandar drains were placed. I de-epithelialized the superior pedicle. I de-epithelialized an autoaugmentation flap which was inset with 2-0 PDS. I then reapproximated the pillar with 2-0 PDS. Along the IMF with 2-0 Vicryl. I repaired vertically with 3-0 Monocryl as well as around the areola. 3-0 Stratafix along the IMF. Final closure was with running s ubcuticular 4-0 Monocryl and tissue glue. She was woken taken the PACU without difficulty. All instrument and sponge counts were correct at the end of the case. Estimated Blood Loss 20 Drains Yes ( Bilateral 15 Bandar) Packing No Pathology none sent Complications No immediate complications Condition stable Disposition PACU
[2020-10-31] MEDS: SCOPOLAMINE 1.5 MG PATCH TRANSDERM (07:24)
[2020-10-31] MEDS: ceFAZolin 2 GM/D5W 50 ML 2 GM/50 ML BAG IVPB (07:30)
[2020-10-31] MEDS: TRANEXAMIC ACID 1,000MG/ISO100 1,000 MG/100 ML BAG 200 MG IVPB (07:38)
[2020-10-31] MEDS: LIDO 1%/EPINEPHRINE 1:100,000 10 ML VIAL 50 ML INFILTRATE (08:00)
[2020-10-31] MEDS: BUPIVACAINE HCL 0.25% PF 30 ML VIAL 60 ML INFILTRATE (08:00)
[2020-10-31] MEDS: oxyCODONE HCL (*CRX) 5 MG TAB IR PO (11:30)
== END 2020-10-31 12:20 | disposition home or self-care (01) ==
PROVIDERS: PCP Nurse Practitioner; Visit Provider Surgery Plastic and Reconstructive Surgery
PROC: 0HPT0JZ Removal of Synthetic Substitute from Right Breast, Open Approach (ICD-10-PCS; CPT 19316; principal; 2020-10-31 07:30)
PROC: (CPT 19316; 2020-10-31 07:30)
DX: Z41.1 Encounter for cosmetic surgery (principal); N64.81 Ptosis of breast; Z79.899 Other long term (current) drug therapy
CPT/HCPCS: 19316; 80307; A9270; J0690; J2250; J2270; J2405; J2704; J7120

== ENCOUNTER 2022-05-26 09:45 | Outpatient (CLI) | payer BC, SELFPAY ==
[2022-05-26 10:05] LABS: Basophils Percent Auto 0.5 % (0.2-1.2); Eosinophils Absolute Auto 0.1 K/mm3 (0-0.3); Eosinophils Percent Auto 1.8 % (0-4.4); Hematocrit 37.7 % (37.0-47.0); Hemoglobin 12.5 g/dL (12.0-15.0); Immature Granulocyte Absolute 0.02 K/mm3 (0.00-0.031); Immature Granulocyte Percent A 0.5 % (0-0.5); Lymphocytes Percent Auto 32.6 % (18.3-44.2); Mean Corpuscular HGB Conc 33.2 g/dl (32-36); Mean Corpuscular Hemoglobin 31.4 pg (26-34); Mean Corpuscular Volume 94.7 fl (80-100); Mean Platelet Volume 9.3 fl (7.4-10.4); Monocytes Absolute Auto 0.4 K/mm3 (0.1-0.6); Monocytes Percent Auto 8.8 % (2.6-8.5); Neutrophils Absolute Auto 2.2 K/mm3 (1.3-6.7); Neutrophils Percent Auto 55.8 % (45.5-73.1); Platelet Count Result 203 k/mm3 (150-375); Red Blood Count 3.98 M/mm3 (4.2-5.4); Red Cell Distribution Width 12.2 % (11.5-14.5)
== END 2022-05-26 09:46 | disposition home or self-care (01) ==
LOC: ANHSURGERY 09:49
PROVIDERS: PCP Nurse Practitioner; Visit Provider Obstetrics & Gynecology
DX: D64.9 Anemia, unspecified (principal)
CPT/HCPCS: 36415; 85025; 86850; 86900; 86901

== ENCOUNTER 2022-06-03 00:35 | Day surgery (SDC) | payer BC, SELFPAY ==
[2022-05-25 10:49] VITALS: BMI 21.5
--- NOTE | 2022-05-25 10:53 | PC.NURSE ---
Report to the Outpatient Waiting Room, entrance under the green pavilion located off [facility], at time 11:00 on date 06/03/22. Planned Procedure Time: 1:00. Time changes happen often and if your time is changed the preop area will call you the afternoon before. - You and your visitor will be asked to self-screen and do not enter if you have any COVID symptoms. - Only one visitor is requested with a max of two and NO children visitors are allowed at this time. - The patient visitor may be requested to leave or wait in car when not with patient due to distancing restrictions. - A mask is optional within the hospital at this time. Patients may have clear liquids (water, carbonated beverages, clear teas, apple juice) until 3 hours prior to surgery (10:00) with a maximum of 20 ounces. - No food from midnight until time of surgery Take the following medications with a SIP of water the morning of surgery: WELLBUTRIN DO NOT STOP ANY OF YOUR OTHER PRESCRIPTION MEDICATIONS PRIOR TO SURGERY EXCEPT THE FOLLOWING Medications to discontinue per physician: VITAMINS/SUPPLEMENTS Date to take last dose: 05/30/22 Please no make-up, nail italian, hairspray, perfume, deodorant, or body powder the day of surgery. No jewelry (including any body piercings) or valuables the day of surgery, leave them at home. Please take a shower or bath the night before, or the morning of, surgery with an antibacterial soap. Wear comfortable, loose fitting clothing. - Jewelry must be removed prior to entering the operating room. Rings and piercings that are not removed may be cut off. - The hospital will not accept responsibility for valuables. - Please leave all valuables, including medications, at home the day of surgery. If you are going home after surgery, a licensed straight truck driver must drive you home. - NO public transportation without another adult if you receive anesthesia. - We recommend that an adult stay with you for 24 hours following discharge. - We also recommend that you do not drive, make important decision, drink alcoholic beverages, or take any drugs that were not prescribed by your health care provider for at least 24 hours after your discharge time. Follow any additional instructions given to you from your surgeon. If you or anyone in your household have experienced Covid symptoms in the past week, please notify your surgeon or the nurse liaison at the phone number below for possible testing. Telephone instructions given to PT - TYLER LAZO and asked if any additional questions and then verbalized understanding. Patient advised to call surgeon office or pre surgery nurse liaison [phone] if any additional questions.
--- NOTE | 2022-06-01 07:45 | PM.IMHP ---
H&P: HPI History of Present Illness Date/Time: 06/01/22 07:45 Chief Complaint: Bleeding and pelvic pain with anemia Narrative: This is a 41-year-old multiparous female admitted for robotic hysterectomy and bilateral salpingectomy secondary excessive heavy bleeding enlarged uterus and anemia. Attempts have been made with hormonal manipulation without success. She understands this to be a permanent irreversible procedure. Risks and benefits reviewed including but not exclusive of , aspiration pneumonia, bleeding, transfusion, perforation injury to bowel, bladder, ureters, or other internal organs with need for open laparotomy. She received the ACOG handout entitled hysterectomy. She received see the div itchy handout. She had all questions answered and asked to proceed PMFSH Past Medical History Medical History Gestational diabetes mellitus (GDM) depression Surgical History Surgical History History of Hx of breast augmentation Family History Family History Other No pertinent family history Social History Social History Smoking status: Never smoker Second hand tobacco smoke exposure: No Alcohol intake: current Drinks per week: 2 Alcohol use details: RARE Substance use: current Substance use type: marijuana Other substance usage details: RARE Living arrangements: with family Gender identity (if verbalized by the patient): Female Spiritual care concerns: No Meds Home Medications and Allergies Home Medications Medication Instructions Recorded Confirmed Type trazodone 50 mg tablet 50 mg PO HS 03/13/20 05/25/22 History bupropion HCl 150 mg 24 hr tablet, 150 mg PO QAM 05/25/22 05/25/22 History extended release (Wellbutrin XL) ferrous sulfate 325 mg (65 mg 325 mg PO DAILY 05/25/22 05/25/22 History iron) tablet Allergies Allergy/AdvReac Type Severity Reaction Status Date / Time No Known Allergies Allergy Verified 05/25/22 10:47 Exam Const: General: cooperative, healthy appearing, comfortable and well groomed Nutritional Appearance: average body habitus Orientation/consciousness: oriented to person, oriented to place and oriented to time HENMT: Head: normal to inspection Chest: Chest palpation & inspection: normal inspection of the chest Resp: Effort & Inspection: normal respiratory effort Cardio: Rate: regular rate Rhythm: regular rhythm Heart sounds: S1 normal heart sound present and S2 normal heart sound present GI: Inspection: normal to inspection Auscultation: normal bowel sounds : External Female Exam: normal external appearance Speculum Exam - Vagina: normal appearance of the vagina Speculum Exam - Cervix: Cervical os closed Bimanual exam- vagina & uterus: enlarged Bimanual Exam- Adnexa, other: normal adnexae Assessment and Plan Assessment and plan (1) Excessive bleeding: Code(s): R58 - Hemorrhage, not elsewhere classified Status: Acute (2) Pelvic pain: Code(s): R10.2 - Pelvic and perineal pain Status: Acute (3) Anemia: Code(s): D64.9 - Anemia, unspecified Status: Acute Plan Robotic total vaginal hysterectomy and bilateral salpingectomy
[2022-06-03] VITALS (9 sets, daily range): BP systolic 107–137; BP diastolic 71–80; PULSE 57–95; RESP 12–18; TEMP 36.4–37; O2SAT 98–100
--- NOTE | 2022-06-03 06:30 | WPDHPUPDATE1 ---
History and Physical Update Update Date/Time: 06/03/22 06:30 History and Physical has been reviewed, including an updated exam of the patient. There are NO changes in the patient's condition. Risks, benefits, and alternatives have been discussed and questions answered. Patient agrees to proceed with procedure.
[2022-06-03] MEDS: ACETAMINOPHEN 500 MG TABLET 1000 MG PO (11:38)
[2022-06-03] MEDS: LACTATED RINGERS 1,000 ML 30 ML IV CONT ×2 (11:51→14:46)
[2022-06-03] MEDS: KETOROLAC 15 MG/ML VIAL (*BKC) IV PUSH (11:52)
--- NOTE | 2022-06-03 12:28 | P.PNAN_ITS ---
Anes - Initial Pre Proc Eval Procedure: Operation Date: 06/03/22 13:00 Proposed Procedures p Robotic Assisted Total Vaginal Hysterectomy with Bilateral Salpingectomy - Teofilo Shah MD Date/Time: 06/03/22 12:28 Surgeon: Teofilo Shah MD Pre Op Diagnosis: exc bleeding, anemia, dyspareunia Patient Data Age: 41 Gender: F Height: 1.57 m Weight: 53.6 kg Last Vital Signs Temp 36.4 C L 06/03/22 11:18 Pulse 57 L 06/03/22 11:18 Resp 16 06/03/22 11:18 BP 107/74 06/03/22 11:18 Pulse Ox 100 06/03/22 11:18 O2 Del Method Room Air 06/03/22 11:18 Allergies Allergy/AdvReac Type Severity Reaction Status Date / Time No Known Allergies Allergy Verified 06/03/22 11:39 Home Medications Medication Instructions Recorded Confirmed Type trazodone 50 mg tablet 50 mg PO HS 03/13/20 06/03/22 History bupropion HCl 150 mg 24 hr tablet, 150 mg PO QAM 05/25/22 06/03/22 History extended release (Wellbutrin XL) ferrous sulfate 325 mg (65 mg 325 mg PO DAILY 05/25/22 06/03/22 History iron) tablet hydrocodone 5 mg-acetaminophen 325 1 tablet PO Q4H PRN pain #30 tabs 06/03/22 Rx mg tablet Patient hx anesthesia problems: none Family hx anesthesia problems: none Results Review: All pre-operative results and documents have been reviewed as part of the pre- operative evaluation. [facility] Past Medical History Medical History Gestational diabetes mellitus (GDM) depression Surgical History Surgical History History of Hx of breast augmentation Family History Family History Other No pertinent family history Social History Social History Smoking status: Never smoker Second hand tobacco smoke exposure: No Alcohol intake: current Drinks per week: 2 Alcohol use details: RARE Substance use: current Substance use type: marijuana Other substance usage details: RARE Living arrangements: with family Gender identity (if verbalized by the patient): Female Spiritual care concerns: No Anes - Eval Final PreProcedure Day of Procedure 06/03/22 12:28 Patient weight: normal Heart: regular rate and rhythm Lungs: clear to auscultation Airway: Mallampati scale class II Neurological: alert and oriented Last oral intake: >/= 8 hours ASA classification: I Emergent: no Anesthetic plan: proceed Anesthesia type and monitoring: general ETT and standard monitoring Results Review: All pre-operative results and documents have been reviewed as part of the pre- operative evaluation. Informed Consent: The patient's anesthetic plan and its attendant risks and benefits were discussed with the patient/family/POA. Questions were solicited and answers provided to the satisfaction of the patient/family/POA.
[2022-06-03] MEDS: ceFAZolin 2 GM/D5W 50 ML 2 GM/50 ML BAG IVPB (13:08)
--- NOTE | 2022-06-03 14:16 | P.OP_ITS ---
Procedure Note - Detailed Date of Procedure 06/03/22 Pre-op Diagnosis exc bleeding, anemia, dyspareunia Post-op Diagnosis Other (adhesions) Procedure Performed Robotic total vaginal hysterectomy bilateral salpingectomy and extensive lysis of adhesions Surgeon Teofilo Shah MD Anesthesia General Indications is a 41-year-old female with symptomatic uterine fibroids pain and bleeding status post tubal ligation Findings tubes status post tubal ligation. An markedly enlarged uterus. Multiple adhesions from the bladder to the superior surface of the uterus on down. Omentum was caked to the back of the uterus cervix. It was also caked to the anterior abdominal wall. Normal-appearing ovaries bilaterally Description of Procedure patient was prepped draped in normal sterile fashion placed in the dorsal lithotomy position. Under excellent general trach anesthesia weighted speculum placed in posterior fornix vagina. Anterior lip of cervix grasped with single- tooth tenaculum the uterus sounded to 12cm. Serial dilatation with fragmented dilators performed followed by passage of the 10. CYNTHIA and the 3. Cold cup. Next the 16 Belgian catheter was placed the weighted speculum was removed. The gloves were changed. A supraumbilical incision made the Veress needle passed in the abdomen. Abdomen filled with CO2 gas [id number]. The 8mm trocar was advanced in the abdomen under direct visualization assuring no injury. This was done on the right and the left lateral quadrant. Right upper quadrant incision made the 8mm trocar advanced under direct visualization assuring no injury. The robot was docked. Attention was turned to the director of group counseling program. The round ligament on the left was grasped, burned, cut. And there was marked amount of adhesions from the omentum to the anterior and posterior surface of the uterus as well as the anterior. These were sharply dissected. The bladder was markedly adherent to the fundus of the uterus layer by layer this was slowly brought down until it was brought caudally away from the cervix and uterus. The left round ligament was grasped, burned, cut and this was brought to the opposite round ligament which was clamped, burned, cut. Next the fallopian tube on the left was skeletonized away from the ovary clamped burned and cut and brought off in 2 pieces that had been previously transected this was repeated with the right fallopian tube. The left utero-ovarian ligament was clamped, burned, cut. Brought to the level of previously cut round ligament. In like fashion right cardinal broad ligaments were serially skeletonized clamping burning cutting irregular this to the uterine vessels on right these were clamped, burned, cut. The uterine vessels on the left were serially skeletonized clamped burned and cut blanching the uterus was seen. A colpotomy incision was made in the cervix uterus and portions of tube removed through the vagina as the other portions of the tube were removed through the right upper quadrant. The optic medical assistant ob gyn was then closed with continuous running 0V lock from lateral edge to lateral edge back to the midline. Irrigation undertaken until clear. The raw surface areas sprinkled with Poteet term. The robot was undocked. The gas removed from the abdomen. The incisions closed with 4 Monocryl and glue. The instruments removed from the vagina the patient was awakened. She went to recovery in satisfactory co ndition. All sponge, needle, instrument counts were correct. There were no immediate complications Estimated Blood Loss 25 Drains No Packing No Pathology Yes Complications No immediate complications Condition Stable Disposition PACU
--- NOTE | 2022-06-03 14:21 | PM.DS ---
DS: Admitting Diagnosis Discharge Date 06/04/2022 Admitting Diagnosis bleeding/ pain/enlarged uterus DS: Discharge Diagnosis Discharge Diagnosis (1) Anemia: Code(s): D64.9 - Anemia, unspecified Status: Acute (2) Pelvic pain: Code(s): R10.2 - Pelvic and perineal pain Status: Acute (3) Excessive bleeding: Code(s): R58 - Hemorrhage, not elsewhere classified Status: Acute DS: Summary Hospital Course Reason for hospitalization: the patient was admitted and underwent robotic total vaginectomy bilateral salpingectomy and lysis of adhesions. Her hospital course. She remained afebrile. She was up, voiding without difficulty, ambulating, eating regular diet, voiding without difficulty and generally without complaints. Hospital Course: See above Time Spent with Patient Time attestation: Total time spent providing and/or coordinating discharge services: Exam Const: General: cooperative, healthy appearing and comfortable Nutritional Appearance: average body habitus Orientation/consciousness: oriented to person, oriented to place and oriented to time HENMT: Head: normal to inspection Resp: Effort & Inspection: normal respiratory effort Cardio: Rate: regular rate Rhythm: regular rhythm Heart sounds: S1 normal heart sound present and S2 normal heart sound present GI: Inspection: normal to inspection and incision ( clean dry and intact) Discharge Plan Discharge Patient Disposition: Home, Self-Care Stand Alone Forms: General Discharge Instructions Follow-up/Referrals: Teofilo Justice MD [Physician] - Discharge Medications: New hydrocodone-acetaminophen 5-325 mg tablet 1 tablet PO Q4H PRN (Reason: pain) Qty: 30 0RF No Action ferrous sulfate 325 mg (65 mg iron) Tablet 325 mg PO DAILY bupropion HCl [Wellbutrin XL] 150 mg Tablet Extended Release 24 Hr 150 mg PO QAM trazodone 50 mg tablet 50 mg PO HS
[2022-06-03] MEDS: fentaNYL CITRATE INJ (*CRX) 100 MCG/2 ML VIAL 25 MCG IV PUSH ×2 (15:28→15:31)
--- NOTE | 2022-06-03 15:58 | PC.NURSE ---
PT arrived on unit via bed accompanied by spouse, Jouradn and taken to room 280. PT alert and awake and oriented to room and surrounding area. PT introductions made and plan of care discussed per protocol hysterectomy, daily care activities and pain management this shift. PT and spouse both recipient of such care and no barriers to learning identified at this time. PT verbalized understanding of such care.
[2022-06-03] MEDS: SIMETHICONE 80 MG TAB.CHEW PO ×2 (16:50→19:30)
[2022-06-03] MEDS: DEXTROSE 5%/LACTATED RINGERS 1,000 ML 125 ML IV CONT (16:51)
[2022-06-03] MEDS: HYDROcodone/acetaminophen (*CRX) 5-325 MG TABLET 1 TAB PO (16:51)
[2022-06-03] MEDS: KETOROLAC 30 MG/ML VIAL (*BKC) IV PUSH (16:52)
[2022-06-03] MEDS: DOCUSATE SODIUM 100 MG CAPSULE PO (16:53)
[2022-06-03] MEDS: HYDROcodone/acetaminophen (*CRX) 10-325 MG TABLET 1 TAB PO (19:30)
[2022-06-03] MEDS: traZODone HCL 50 MG TABLET PO (21:14)
[2022-06-04] VITALS: BP 104/65; PULSE 79; RESP 18; TEMP 36.9; O2SAT 99
[2022-06-04] MEDS: HYDROcodone/acetaminophen (*CRX) 10-325 MG TABLET 1 TAB PO
[2022-06-04] MEDS: SIMETHICONE 80 MG TAB.CHEW PO ×4 (04:10→13:50)
[2022-06-04] MEDS: HYDROcodone/acetaminophen (*CRX) 5-325 MG TABLET 1 TAB PO ×3 (04:10→13:51)
[2022-06-04 04:15] VITALS: BP 104/57; PULSE 60; RESP 16; TEMP 36.6; O2SAT 99
[2022-06-04 04:50] LABS: Basophils Percent Auto 0.3 % (0.2-1.2); Hematocrit 32.8 % (37.0-47.0); Hemoglobin 11.2 g/dL (12.0-15.0); Immature Granulocyte Absolute 0.08 K/mm3 (0.00-0.031); Immature Granulocyte Percent A 0.9 % (0-0.5); Lymphocytes Absolute Auto 1.28 K/mm3 (0.9-3.2); Lymphocytes Percent Auto 14.6 % (18.3-44.2); Mean Corpuscular HGB Conc 34.1 g/dl (32-36); Mean Corpuscular Hemoglobin 30.9 pg (26-34); Mean Corpuscular Volume 90.4 fl (80-100); Mean Platelet Volume 9.5 fl (7.4-10.4); Monocytes Absolute Auto 0.5 K/mm3 (0.1-0.6); Monocytes Percent Auto 6.1 % (2.6-8.5); Neutrophils Absolute Auto 6.8 K/mm3 (1.3-6.7); Neutrophils Percent Auto 78.1 % (45.5-73.1); Platelet Count Result 222 k/mm3 (150-375); Red Blood Count 3.63 M/mm3 (4.2-5.4); Red Cell Distribution Width 11.9 % (11.5-14.5); White Blood Count 8.8 K/mm3 (4.5-10.0)
[2022-06-04 07:20] VITALS: BP 109/72; PULSE 64; RESP 16; TEMP 37.6; O2SAT 100
--- NOTE | 2022-06-04 07:38 | PM.GYNPNOP ---
PLASTIC CNC MACHINE OPERATOR - A/P Postoperative Procedures: Procedures Operation Date: 06/03/22 13:00 Actual Procedure Side Surgeon p Robotic Assisted Total Vaginal Hysterectomy with Bilateral Salpingectomy Bilateral Teofilo Shah MD Postoperative day: 1 Postoperative status: doing well Postoperative plan: routine post-op care, see orders, advance diet, voiding trials and discharge Time Spent With Patient Time: Total time spent is greater than 50% in coordination of care (as documented) at patient's floor/unit and/or counseling patient: Time with patient: less than 15 minutes PLASTIC CNC MACHINE OPERATOR- PN:Subj Post-Op Subjective Date/time seen: 06/04/22 07:38 Subjective: patient reports feeling better, patient has no complaints, patient desires discharge, pain is well controlled and patient is tolerating oral intake Exam Const: General: cooperative, healthy appearing and comfortable Nutritional Appearance: average body habitus Orientation/consciousness: oriented to person, oriented to place and oriented to time HENMT: Head: normal to inspection Resp: Effort & Inspection: normal respiratory effort Cardio: Rate: regular rate Rhythm: regular rhythm Heart sounds: S1 normal heart sound present and S2 normal heart sound present GI: Inspection: normal to inspection and incision (Incisions were clean dry and intact) PLASTIC CNC MACHINE OPERATOR - PN: Obj Data Vital Signs Vital Signs: Vital Signs - 24 hr 06/03/22 11:18 06/03/22 14:46 06/03/22 15:00 Temperature 97.5 F L 98.3 F Pulse Rate 57 L 95 73 Respiratory Rate 16 16 12 Blood Pressure 107/74 137/79 137/79 Pulse Oximetry 100 100 100 Oxygen Delivery Room Air Simple Face Mask Room Air Oxygen Flow Rate 6 06/03/22 15:15 06/03/22 15:30 06/03/22 15:45 Temperature Pulse Rate 64 63 60 Respiratory Rate 12 12 12 Blood Pressure 115/77 111/75 107/76 Pulse Oximetry 100 99 98 Oxygen Delivery Room Air Room Air Room Air Oxygen Flow Rate 06/03/22 15:52 06/03/22 16:00 06/03/22 16:00 Temperature 98.6 F Pulse Rate 71 58 L 58 L Respiratory Rate 16 18 18 Blood Pressure 112/77 107/71 Pulse Oximetry 99 100 100 Oxygen Delivery Room Air Room Air Oxygen Flow Rate 06/03/22 19:30 06/03/22 19:30 06/04/22 00:00 Temperature 98.1 F 98.5 F Pulse Rate 71 79 Respiratory Rate 16 18 Blood Pressure 111/80 104/65 Pulse Oximetry 100 99 Oxygen Delivery Room Air Oxygen Flow Rate 06/04/22 00:00 06/04/22 04:15 06/04/22 04:15 Temperature 98 F Pulse Rate 60 Respiratory Rate 16 Blood Pressure 104/57 L Pulse Oximetry 99 Oxygen Delivery Room Air Room Air Oxygen Flow Rate Intake/Output Intake/Output: Intake & Output 06/01/22 06/02/22 06/03/22 06/04/22 23:59 23:59 23:59 23:59 Intake Total 750 1000 Output Total 800 400 Balance -50 600 Meds/Results Medications: Active Medications Generic Name Dose Route Start Last Admin Trade Name Freq PRN Reason Stop Dose Admin Hydrocodone Bitart/Acetaminophen 1 tab 06/03/22 15:55 06/04/22 04:10 Hydrocodone/Acetaminophen (*Crx) 5-325 Mg Tablet PO 1 tab Q3H PRN Administration Pain Rated 5 or Less Hydrocodone Bitart/Acetaminophen 1 tab 06/03/22 15:55 06/04/22 00:00 Hydrocodone/Acetaminophen (*Crx) 10-325 Mg Tablet PO 1 tab Q3H PRN Administration Pain Rated 6 or Greater Docusate Sodium 100 mg 06/03/22 17:00 06/03/22 16:53 Docusate Sodium 100 Mg Capsule PO 100 mg BID ADOLFO Administration Enoxaparin Sodium 40 mg 06/04/22 09:00 Enoxaparin 40 Mg/0.4 Ml Syringe SUB-Q DAILY ADOLFO Ibuprofen 600 mg 06/03/22 15:55 Ibuprofen 600 Mg Tablet PO Q6H PRN Cramping Ketorolac Tromethamine 30 mg 06/03/22 15:55 06/03/22 16:52 Ketorolac 30 Mg/Ml Vial (*Bkc) IV PUSH 06/08/22 15:54 30 mg Q6H PRN Administration Pain Rated 4-6 Naloxone HCl 0.1 mg 06/03/22 15:55 Naloxone Hcl 0.4 Mg/Ml Vial IV PUSH Q2M PRN Respiratory rate less than 10 Ondansetron HCl 4 mg 03
--- NOTE | 2022-06-04 08:00 | PC.NURSE ---
PT introductions made and plan of care discussed per post op ceramics test engineer surgery, pain management, daily care activities and pending discharge to home. PT and spouse both recipients of such instructions and no barriers to learning identified at this time. PT received such instructions this shift via one to one discussion and demonstrations and handouts. PT verbalized understanding of such care.
--- NOTE | 2022-06-04 09:23 | WPDANESPN ---
Anes - Prog Note Post-Op Date/Time: 06/04/22 09:23 Cardiovascular status: normal Respiratory status: normal Airway patency: baseline Mental status: baseline Post-Op hydration status: normal Vital Signs: Last Vital Signs Temp 99.6 F 06/04/22 07:20 Pulse 64 06/04/22 07:20 Resp 16 06/04/22 07:20 BP 109/72 06/04/22 07:20 Pulse Ox 100 06/04/22 07:20 O2 Del Method Room Air 06/04/22 04:15 O2 Flow Rate 6 06/03/22 14:46 Pain Score (VAS): 2 I/O: Intake & Output 06/03/22 06/04/22 06/04/22 23:59 07:59 15:59 Intake Total 500 1000 Output Total 800 400 Balance -300 600 Laboratory Tests 06/04/22 04:20 06/04/22 04:20 WBC 8.8 RBC 3.63 L Hgb 11.2 L Hct 32.8 L MCV 90.4 MCH 30.9 MCHC 34.1 RDW 11.9 Plt Count 222 MPV 9.5 Immature Gran % (Auto) 0.9 H Neut % (Auto) 78.1 H Lymph % (Auto) 14.6 L [place] % (Auto) 6.1 Eos % (Auto) 0.0 Baso % (Auto) 0.3 Lymph # (Auto) 1.28 [place] # (Auto) 0.5 Eos # (Auto) 0.0 Baso # (Auto) 0.0 Abs Immat Gran (auto) 0.08 H Absolute Neuts (auto) 6.8 H Absolute Nucleated RBC 0.0 Nucleated RBC % 0.0 Post-procedural complaints: none Patient Feedback: Patient satisfied with anesthetic care.
[2022-06-04] MEDS: ENOXAPARIN 40 MG/0.4 ML SYRINGE SUB-Q (09:57)
[2022-06-04] MEDS: IBUPROFEN 600 MG TABLET PO (09:58)
[2022-06-04 10:00] VITALS: PULSE 64; RESP 16; O2SAT 100
[2022-06-04] MEDS: DOCUSATE SODIUM 100 MG CAPSULE PO (10:00)
--- NOTE | 2022-06-04 13:30 | PC.NURSE ---
PT and spouse both received discharge instructions per protocol and verbalized understanding of such care
--- NOTE | 2022-06-04 14:05 | PC.NURSE ---
PT discharged to home ambulatory accompanied by spouse and taken to waiting car. follow up appts confirmed
== END 2022-06-04 14:05 | disposition home or self-care (01) ==
LOC: ANHSURGERY 11:05 → ANHOB2 15:57
PROVIDERS: PCP Nurse Practitioner; Visit Provider Obstetrics & Gynecology
PROC: (CPT 58552; principal; 2022-06-03 13:00)
DX: N93.9 Abnormal uterine and vaginal bleeding, unspecified (principal); D64.9 Anemia, unspecified; N94.10 Unspecified dyspareunia; N73.6 Female pelvic peritoneal adhesions (postinfective); R10.2 Pelvic and perineal pain; F12.90 Cannabis use, unspecified, uncomplicated
CPT/HCPCS: 58552; S2900; 36415; 85025; 88307; 99199; A9270; J0330; J0690; J1100; J1170; J1650; J1885; J2250; J2405; J2704; J2710; J3010; J7120; J7121

== ENCOUNTER 2022-07-06 08:11 | Outpatient (CLI) | payer BC, SELFPAY ==
--- NOTE | ~2022-07-06 | MM_ITS ---
EXAMINATION: MM screening [facility] BI w rose HISTORY: Screening mammogram TECHNIQUE: Craniocaudal and mediolateral oblique 3-D tomosynthesis images were obtained and synthetic 2-D images were generated. CAD analysis was submitted and interpreted. COMPARISON: 08/26/2020 BREAST PARENCHYMAL COMPOSITION: The breasts are heterogeneously dense, which may obscure small masses . FINDINGS: There has been interval explantation of the bilateral breast implants. No suspicious mass, calcification, or architectural distortion are identified in either breast to suggest malignancy. The re has been no suspicious interval change. IMPRESSION: 1. No mammographic evidence of malignancy. 2. Recommend routine screening mammography in one year. BI-RADS Category 1: Negative Reviewed, dictated and finalized at location A.
== END 2022-07-06 08:12 | disposition home or self-care (01) ==
PROVIDERS: PCP Nurse Practitioner; Visit Provider Obstetrics & Gynecology
DX: Z12.31 Encounter for screening mammogram for malignant neoplasm of breast (principal)
CPT/HCPCS: 77063; 77067

== ENCOUNTER 2023-06-26 08:22 | Outpatient (CLI) | payer BC, SELFPAY ==
--- NOTE | ~2023-06-26 | MM_ITS ---
EXAMINATION: MM screening [facility] BI w rose HISTORY: Screening mammogram TECHNIQUE: Craniocaudal and mediolateral oblique 3-D tomosynthesis images were obtained and synthetic 2-D images were generated. CAD analysis was submitted and interpreted. COMPARISON: July 07, 199908/06 and 08/26/2020 bilateral screening mammogram examinations BREAST PARENCHYMAL COMPOSITION: The breasts are extremely dense, which lowers the sensitivity of mamm ography. FINDINGS: There is no evidence of suspicious mass, calcification, or architectural distortion to sugg est malignancy in either breast. There has been no suspicious interval change. IMPRESSION: 1. No mammographic evidence of malignancy. 2. Recommend routine screening mammography in one year. BI-RADS Category 1: Negative Reviewed, dictated and finalized at location B.
== END 2023-06-26 08:23 | disposition home or self-care (01) ==
PROVIDERS: PCP Nurse Practitioner; Visit Provider Obstetrics & Gynecology
DX: Z12.31 Encounter for screening mammogram for malignant neoplasm of breast (principal)
CPT/HCPCS: 77063; 77067

== ENCOUNTER 2024-08-18 13:42 | Outpatient (CLI) | payer OTHER, SELFPAY ==
--- NOTE | ~2024-08-18 | MM_ITS ---
EXAMINATION: MM screening [facility] BI w rose HISTORY: Screening TECHNIQUE: Craniocaudal and mediolateral oblique 3-D tomosynthesis images were obtained and synthetic 2-D images were generated. CAD analysis was submitted and interpreted. COMPARISON: Comparison to multiple prior studies sequentially, with oldest reviewed study dated 09/2020. BREAST PARENCHYMAL COMPOSITION: Dense: The breasts are extremely dense, which lowers the sensitivity of mammography. FINDINGS: There is no evidence of suspicious mass, calcification, or architectural distortion to sugg est malignancy in either breast. There has been no suspicious interval change. IMPRESSION: 1. No mammographic evidence of malignancy. 2. Recommend routine screening mammography in one year. BI-RADS Category 1: Negative Reviewed, dictated and finalized at location A.
--- OUTSIDE RECORDS SUMMARY | 2024-08-18 13:48 | XMS_ITS | Clinical Summary ---
Author Organization [facility] Address [address], [facility] [address] [place] [address] Phone Care Team Providers Care Gymnastics Instructor Name Role Phone Chiara Gillis APRN, CNP Primary Care Provid er Edgar Kamara DO Unavailable [phone] Allergies No known active allergies Medications traZODone (DESYREL) 50 MG Tablet trazodone 50 mg tablet TAKE 1 TABLET BY MOUTH EVERY DAY AT BEDTIME FOR INSOMNIA 2 Active Cyanocobalamin 1000 MCG Tablet Take 1,000 mcg by mouth daily. Active Multiple Vitamin (MULTIVITAMIN PO) Take by mouth. Activ e Active Problems No known active problems Family History Relation Name Status Comments Brother Alive Father Alive Mother Sister Alive Social History Tobacco Use Types Packs/Day Years Used Date Smoking Tobacco: Never Smokeless Tobacco: Never Tobacco Cessation:Counseling Given: Not Answered Alcohol Use Standard Drinks/Week Comments Yes 5 (1 standard drink = 0.6 oz pur e alcohol) PHQ-2 Answer Date Recorded Total Score - Questions 1-9 0 09/20 Comments Unknown Sex and Gender Information Value Date Recorded Sex Assigned at Not on file Legal Sex Female 3:53 PM CDT Gender Identity Not on file Sexual Orientation Not on file Last Filed Vital Signs Vital Sign Reading Time Taken Comments Blood Pressure 110/70 03/31/2024 9:27 AM SPOILAGE WORKER Pulse 84 03/31/2024 9:27 AM SPOILAGE WORKER Temperature 36.8 C (98.2 F) 03/31/2024 9:27 AM SPOILAGE WORKER Respiratory Rate 16 03/31/2024 9:27 AM SPOILAGE WORKER Oxygen Saturation 98% 03/31/2024 9:27 AM SPOILAGE WORKER Inhaled Oxygen Concentration - - Weight 53.1 kg (117 lb 1.6 oz) 03/31/2024 9:27 A M SPOILAGE WORKER Height 157.5 cm (5' 2) 03/31/2024 9:27 AM SPOILAGE WORKER Body Mass Index 21.42 03/31/2024 9:27 AM SPOILAGE WORKER Plan of Treatment Upcoming Encounters Date Type Department Care Team (Late st Contact Info) Description 03/30/2025 9:15 AM SPOILAGE WORKER Lab [facility] [address] [phone] Lab, [facility] 03/30/2025 9:15 AM SPOILAGE WORKER Office Visit [facility] [address] [phone] Edgar Kamara, DO [address] [place] [phone] Health Maintenance Due Date Last Done Comments Mammogram 1981 Discussion re Starting/Frequency of Mammograms 2021 SARS-COV-2 Immunization ( season) 2023 09/15/2023 Hepatitis B Immunization (3 of 3 - 19+ 3-dose series) 02/19/2024 09/17/2023, 08/19/2023 Influenza Immunization (Season Ended) 2024 02/16/2022, 12/20/2020, 01/05/2020, Additional history exists Respiratory Syncytial Virus (RSV) Immunization (Adult) (1 - 1-dose 75+ series) 2056 DTaP/Tdap/Td Immunization Discontinued 02/05/2019 TdaP Immunization Completed 02/05/2019 Hepatitis C Virus (HCV) Screening Completed 07/21/2021 Human Papillomavirus (HPV) Immunization Aged Out No longer eligible based on patient's age to complete this topic Meningococcal Immunization (ACWY) Aged Out No longer eligible based on patient's age to complete this topic Pneumococcal Immunization Combined Aged Out No longer eligible based on patient's age to complete this topic Rotavirus Immunization Aged Out No lo nger eligible based on patient's age to complete this topic Insurance MEDICAID [employer] Care Teams Gymnastics Instructor Relationship Specialty Start Date End Date Chiara Gillis, [employer] PACKING MIXER, NEON MOLDER [address], [address] [place] [address] PCP - General Advanced Practice Nurse 07/24/21 Edgar Kamara DO [address] [place] [address] Consulting Physician Oncology 07/24/21
== END 2024-08-18 13:43 | disposition home or self-care (01) ==
LOC: ANHIMG 13:46
PROVIDERS: PCP Nurse Practitioner; Visit Provider Nurse Practitioner
DX: Z12.31 Encounter for screening mammogram for malignant neoplasm of breast (principal)
CPT/HCPCS: 77063; 77067